=== PATIENT | male | born 1970 | race Caucasian/White ===

== ENCOUNTER 2023-12-22 06:14 | Day surgery (SDC) | payer BC, SELFPAY ==
[2023-12-22] VITALS (21 sets, daily range): BP systolic 139–199; BP diastolic 90–129; BMI 32.2
[2023-12-22] MEDS: NORMOSOL-R 1000 IV (09:07)
[2023-12-22] MEDS: DILAUDID 0.25 MG IV ×4 (11:53→13:25)
[2023-12-22] MEDS: APRESOLINE 5 MG IV ×4 (12:41→13:21)
--- NOTE | 2023-12-22 14:02 | SUR.PHASEI ---
patient known hypertension - untreated and ROSE MARIE untreated. Bp elevated - c/o burning pain in nose - severe. Treated pain cautiously with Dilaudid 0.25mg due to ROSE MARIE. Sats down to 88% - patient able to bring sats up on own without intervention. "Christa"Charly and Dr Snyder advise patient and nursing to limit narcotic use as much as possible. BP treated x4 with apresoline 5mg IV with some improvement. Patient able to use urinal on stretcher in pacu. Able to sleep after medication. Dressing to
nose only changed x1 for bleeding. Dr Parks updated on BP and meds at 1330 - send to [facility] without further treatment at this time. Patient advised to sleep in recliner tonight with HOB elevated. Also advised to contact primary doctor and follow up
on hypertension
[2023-12-22] MEDS: ROXICODONE 5 MG PO (14:31)
== END 2023-12-22 14:55 | disposition home or self-care (01) ==
LOC: SDS 06:14
PROVIDERS: ATTENDING PHYSICIAN Otolaryngology; FAMILY PHYSICIAN Physician Assistant
DX: J34.2 Deviated nasal septum (principal); J34.3 Hypertrophy of nasal turbinates
CPT/HCPCS: 30520